=== PATIENT | male | born 1970 | race Caucasian/White ===

== ENCOUNTER 2019-07-31 06:07 | Inpatient (IN) | payer BC ==
[~2019-07-31] VITALS: Ht 165.1 cm; Wt 76.9 kg
[~2019-07-31 06:07] MED LIST: AMLO5TAB15 PO; BUSP15TA60 PO; DICY10CA12 PO; HYDR-4833 PO; LISI-646 PO; MONT10TA34 PO; PANT40TA2 PO; SULI200T4 PO; TRAM50TA2 PO
[2019-07-31] MEDS ORDERED: BUPIVACAINE HCL 50 ML ONE (06:55)
[2019-07-31] MEDS ORDERED: LIDOCAINE 1% HCL (LOCAL ANESTH.) INJ 20ML MDV ONE (06:55)
[2019-07-31] MEDS ORDERED: LIDOCAINE W/ EPINEPHRINE 1% 20ML VIAL ONE (06:55)
[2019-07-31] MEDS ORDERED: HEPARIN SODIUM (PORCINE) 5000 UNITS/ML 1ML VIAL ONE (06:59)
[2019-07-31] MEDS ORDERED: cefOXitin 2GM/100ML 100 ML IV ONE (07:00)
[2019-07-31] MEDS ORDERED: SUCCINYLCHOLINE CHLORIDE 20 MG/ML 10ML VIAL IV ONE (07:15)
[2019-07-31] MEDS ORDERED: ROCURONIUM 10MG/ML 10ML VIAL IV ONE (07:31)
[2019-07-31] MEDS ORDERED: fentaNYL CITRATE 100 MCG/2 ML VL ONE ×2 (07:31→08:41)
[2019-07-31] MEDS ORDERED: MIDAZOLAM HCL 1MG/1ML-2 ML VIAL ONE (07:32)
[2019-07-31] MEDS ORDERED: PROPOFOL 10 MG/ML 20 ML IV ONE (07:32)
[2019-07-31] MEDS ORDERED: GLUCAGON HYDROCHLORIDE (RDNA) 1 MG VIAL ONE (09:07)
[2019-07-31] MEDS ORDERED: ACETAMINOPHEN 325 MG TAB PO PRN (10:30)
[2019-07-31] MEDS ORDERED: PANTOPRAZOLE 40 MG/10 ML VIAL INJ IV ONE (10:30)
[2019-07-31] MEDS ORDERED: ePHEDrine SULFATE 50 MG/ML AMP IV PRN (10:45)
[2019-07-31] MEDS ORDERED: ENOXAPARIN SOD 40 MG/0.4 ML SYRINGE SC ONE (10:45)
[2019-07-31] MEDS ORDERED: amLODIPine BESYLATE 5 MG TAB PO ONE (10:45)
[2019-07-31] MEDS ORDERED: LISINOPRIL 20 MG TAB PO ONE (10:45)
[2019-07-31] MEDS ORDERED: HYDROmorphone HCL 2 MG/ML VL IV PRN (10:45)
[2019-07-31] MEDS ORDERED: GABAPENTIN 100 MG CAP PO ONE (10:45)
[2019-07-31] MEDS ORDERED: hydrALAZINE HCL 20 MG/ML VL IV PRN (10:45)
[2019-07-31] MEDS ORDERED: ONDANSETRON HCL 4 MG/2 ML VIAL IV PRN (10:45)
[2019-07-31] MEDS ORDERED: CELECOXIB 100 MG CAP PO ONE (10:45)
[2019-07-31] MEDS: HYDROmorphone HCL 2 MG/ML VL IV PRN ×4 (11:05→11:38)
[2019-07-31] MEDS: MORPHINE SULFATE 10 MG/ML INJ 1ML SDV IV PRN ×4 (12:47→20:52)
[2019-07-31] MEDS: busPIRone HCL 10 MG TAB PO SCH ×2 (12:48→22:20)
[2019-07-31] MEDS: D5W/SOD CHL 0.45%/KCL 20MEQ 1,000 ML IV SCH ×2 (12:48→23:50)
[2019-07-31 15:15] VITALS: BP 115/77
[2019-07-31 17:07] VITALS: BP 114/79
[2019-07-31 18:39] VITALS: BP 111/69
[2019-07-31 21:59] VITALS: BP 119/82
[2019-07-31] MEDS ORDERED: CELECOXIB 100 MG CAP PO SCH (22:00)
[2019-07-31] MEDS: CELECOXIB 100 MG CAP PO SCH (22:21)
[2019-07-31] MEDS: GABAPENTIN 100 MG CAP PO SCH (22:21)
[2019-08-01] MEDS: MORPHINE SULFATE 10 MG/ML INJ 1ML SDV IV PRN ×3 (01:00→21:45)
[2019-08-01 05:00] VITALS: BP 112/69
[2019-08-01] MEDS: MORPHINE SULF INJ 2 MG/ML SYRINGE 1ML IV PRN ×3 (05:28→18:58)
[2019-08-01] MEDS: D5W/SOD CHL 0.45%/KCL 20MEQ 1,000 ML IV SCH ×2 (05:29→20:50)
[2019-08-01 08:00] VITALS: BP 140/83
[2019-08-01] MEDS: busPIRone HCL 10 MG TAB PO SCH ×2 (09:42→21:44)
[2019-08-01] MEDS: CELECOXIB 100 MG CAP PO SCH ×2 (09:42→21:44)
[2019-08-01] MEDS: GABAPENTIN 100 MG CAP PO SCH ×2 (09:42→21:44)
[2019-08-01] MEDS: MONTELUKAST SODIUM 10 MG TAB PO SCH (09:43)
[2019-08-01] MEDS: amLODIPine BESYLATE 5 MG TAB PO SCH (09:43)
[2019-08-01] MEDS: LISINOPRIL 20 MG TAB PO SCH (09:44)
[2019-08-01] MEDS: ENOXAPARIN SOD 40 MG/0.4 ML SYRINGE SC SCH (09:44)
[2019-08-01 11:46] LABS: Basophils # (auto) 0 10 ^3/uL (0-0.2); Basophils % (auto) 0.3 % (0.0-2.0); Eosinophils # (auto) 0 10 ^3/uL (0-0.8); Eosinophils % (auto) 0.2 % (0.0-7.0); Hemoglobin 13.7 g/dL (13.5-17.5); Lymphocytes # (auto) 1.2 10 ^3/uL (0.4-5.4); Lymphocytes % (auto) 11.6 % (10.0-50.0); Mean Corpuscular Hemoglobin 30.1 pg (28.0-32.0); Mean Corpuscular Hgb Conc. 33.4 g/dL (32.0-36.0); Mean Corpuscular Volume 90.1 fL (80.0-100.0); Monocytes # (auto) 0.8 10 ^3/uL (0-1.3); Monocytes % (auto) 7.6 % (0.0-12.0); Neutrophils # (auto) 8.5 10 ^3/uL (1.6-8.6); Neutrophils % (auto) 80.3 % (37.0-80.0); Nucleated Red Blood Cells % 0.2 %; Platelet Count (auto) 258 10^3/uL (140-450); Red Blood Cells 4.55 10^6/uL (4.5-5.90); Red Cell Distribution Width 14.1 % (11.8-14.3); White Blood Cell 10.6 10^3/uL (4.4-10.8)
[2019-08-01 12:00] VITALS: BP 128/83
[2019-08-01 12:05] LABS: BUN/Creatinine Ratio 7.6; Calcium 8.7 mg/dL (8.5-10.1); Magnesium 2.3 mg/dL (1.6-2.6); Potassium 4.2 mmol/L (3.5-5.1)
[2019-08-01 17:00] VITALS: BP 123/82
[2019-08-01 20:00] VITALS: BP 137/80
[2019-08-01 21:57] VITALS: BP 137/80
[2019-08-02] MEDS: MORPHINE SULF INJ 2 MG/ML SYRINGE 1ML IV PRN ×3 (04:29→23:04)
[2019-08-02 05:00] VITALS: BP 140/85
[2019-08-02 08:00] VITALS: BP 133/95
[2019-08-02 08:58] VITALS: BP 133/95
[2019-08-02] MEDS: busPIRone HCL 10 MG TAB PO SCH ×2 (10:18→22:03)
[2019-08-02] MEDS: amLODIPine BESYLATE 5 MG TAB PO SCH (10:19)
[2019-08-02] MEDS: GABAPENTIN 100 MG CAP PO SCH ×2 (10:19→22:07)
[2019-08-02] MEDS: CELECOXIB 100 MG CAP PO SCH ×2 (10:19→22:05)
[2019-08-02] MEDS: MONTELUKAST SODIUM 10 MG TAB PO SCH (10:19)
[2019-08-02] MEDS: LISINOPRIL 20 MG TAB PO SCH (10:20)
[2019-08-02] MEDS: ENOXAPARIN SOD 40 MG/0.4 ML SYRINGE SC SCH (10:20)
[2019-08-02] MEDS: MORPHINE SULFATE 10 MG/ML INJ 1ML SDV IV PRN (10:20)
[2019-08-02 12:36] VITALS: BP 135/86
[2019-08-02] MEDS: D5W/SOD CHL 0.45%/KCL 20MEQ 1,000 ML IV SCH ×2 (15:41→22:08)
[2019-08-02 17:23] VITALS: BP 144/98
[2019-08-02 22:00] VITALS: BP 139/97
[2019-08-03 05:00] VITALS: BP 113/74
[2019-08-03 08:59] VITALS: BP 145/86
[2019-08-03] MEDS: amLODIPine BESYLATE 5 MG TAB PO SCH (10:04)
[2019-08-03] MEDS: LISINOPRIL 20 MG TAB PO SCH (10:05)
[2019-08-03] MEDS: GABAPENTIN 100 MG CAP PO SCH ×2 (10:05→23:09)
[2019-08-03] MEDS: busPIRone HCL 10 MG TAB PO SCH ×2 (10:06→23:10)
[2019-08-03] MEDS: MONTELUKAST SODIUM 10 MG TAB PO SCH (10:06)
[2019-08-03] MEDS: CELECOXIB 100 MG CAP PO SCH ×2 (10:06→23:10)
[2019-08-03] MEDS: ENOXAPARIN SOD 40 MG/0.4 ML SYRINGE SC SCH (10:10)
[2019-08-03] MEDS: MORPHINE SULF INJ 2 MG/ML SYRINGE 1ML IV PRN ×3 (11:01→23:10)
[2019-08-03] MEDS: ONDANSETRON HCL 4 MG/2 ML VIAL IV PRN ×3 (11:01→23:10)
[2019-08-03 13:00] VITALS: BP 119/78
[2019-08-03 17:00] VITALS: BP 136/86
[2019-08-03] MEDS: D5W/SOD CHL 0.45%/KCL 20MEQ 1,000 ML IV SCH (18:30)
[2019-08-03 22:00] VITALS: BP 145/89
[2019-08-04 05:00] VITALS: BP 132/82
[2019-08-04] MEDS: MORPHINE SULF INJ 2 MG/ML SYRINGE 1ML IV PRN (05:06)
[2019-08-04] MEDS: ONDANSETRON HCL 4 MG/2 ML VIAL IV PRN (05:06)
[2019-08-04] MEDS: D5W/SOD CHL 0.45%/KCL 20MEQ 1,000 ML IV SCH ×2 (07:50→16:19)
[2019-08-04 09:00] VITALS: BP 131/80
[2019-08-04] MEDS: amLODIPine BESYLATE 5 MG TAB PO SCH (09:59)
[2019-08-04] MEDS: LISINOPRIL 20 MG TAB PO SCH (09:59)
[2019-08-04] MEDS: ENOXAPARIN SOD 40 MG/0.4 ML SYRINGE SC SCH (10:00)
[2019-08-04] MEDS: GABAPENTIN 100 MG CAP PO SCH ×2 (10:00→22:14)
[2019-08-04] MEDS: busPIRone HCL 10 MG TAB PO SCH ×2 (10:00→22:16)
[2019-08-04] MEDS: MONTELUKAST SODIUM 10 MG TAB PO SCH (10:00)
[2019-08-04] MEDS: CELECOXIB 100 MG CAP PO SCH ×2 (10:00→22:16)
[2019-08-04 14:51] VITALS: BP 124/76
[2019-08-04 17:00] VITALS: BP 122/82
[2019-08-04] MEDS ORDERED: TEMAZEPAM 15 MG CAP PO ONE (20:00)
[2019-08-04 22:00] VITALS: BP 133/78
[2019-08-05 05:08] VITALS: BP 127/74
[2019-08-05 06:34] LABS: BUN/Creatinine Ratio 18.3; Calcium 8.3 mg/dL (8.5-10.1); Magnesium 2.1 mg/dL (1.6-2.6)
[2019-08-05 08:51] VITALS: BP 119/95
[2019-08-05] MEDS: MONTELUKAST SODIUM 10 MG TAB PO SCH (08:59)
[2019-08-05] MEDS: CELECOXIB 100 MG CAP PO SCH (09:00)
[2019-08-05] MEDS: amLODIPine BESYLATE 5 MG TAB PO SCH (09:01)
[2019-08-05] MEDS: GABAPENTIN 100 MG CAP PO SCH (09:01)
[2019-08-05] MEDS: LISINOPRIL 20 MG TAB PO SCH (09:02)
[2019-08-05] MEDS: busPIRone HCL 10 MG TAB PO SCH (09:03)
[2019-08-05] MEDS: ENOXAPARIN SOD 40 MG/0.4 ML SYRINGE SC SCH (09:04)
[2019-08-05] MEDS: D5W/SOD CHL 0.45%/KCL 20MEQ 1,000 ML IV SCH (10:30)
[2019-08-05 13:00] VITALS: BP 134/90
[2019-08-05 17:01] VITALS: BP 138/85
== END 2019-08-05 20:20 | disposition home or self-care (01) | DRG 330 ==
LOC: OVERFLOW 06:07 → EDSTATUS 07:00 → EDBD 07:00 → WEST WING 12:05
PROVIDERS: ATTEND Internal Medicine
PROC: 0DJD0ZZ Inspection of Lower Intestinal Tract, Open Approach (ICD-10-PCS; 2019-07-31)
PROC: 0DNW0ZZ Release Peritoneum, Open Approach (ICD-10-PCS; 2019-07-31)
PROC: 0DTN0ZZ Resection of Sigmoid Colon, Open Approach (ICD-10-PCS; principal; 2019-07-31 07:36)
DX: K57.32 Diverticulitis of large intestine without perforation or abscess without bleeding (principal); K56.7 Ileus, unspecified; I10 Essential (primary) hypertension; K21.9 Gastro-esophageal reflux disease without esophagitis; K66.0 Peritoneal adhesions (postprocedural) (postinfection); L40.50 Arthropathic psoriasis, unspecified; Z20.828 Contact with and (suspected) exposure to other viral communicable diseases; Z53.31 Laparoscopic surgical procedure converted to open procedure; Z79.899 Other long term (current) drug therapy; Z88.2 Allergy status to sulfonamides
CPT/HCPCS: 36415; 71045; 74022; 80048; 83735; 85025; 86850; 86900; 86901; 97116; 97163; 97530; C9113; G0378; J0330; J0694; J2001; J2250; J2405; J2704; J3490

== ENCOUNTER 2019-08-19 10:48 | Emergency (ER) | payer BC ==
[~2019-08-19] VITALS: Ht 165.1 cm; Wt 74.8 kg
[2019-08-19] MEDS ORDERED: SODIUM CHLORIDE 0.9% 1,000 ML IV ONE (16:29)
[2019-08-19 17:31] LABS: Basophils # (auto) 0.1 10 ^3/uL (0-0.2); Lymphocytes # (auto) 1.5 10 ^3/uL (0.4-5.4); Mean Corpuscular Hgb Conc. 32.5 g/dL (32.0-36.0); Monocytes # (auto) 0.8 10 ^3/uL (0-1.3); Nucleated Red Blood Cells % 0.1 %; Red Cell Distribution Width 14.1 % (11.8-14.3)
[2019-08-19 17:32] LABS: Basophils % (auto) 1.3 % (0.0-2.0); Eosinophils # (auto) 0.2 10 ^3/uL (0-0.8); Eosinophils % (auto) 2.4 % (0.0-7.0); Hematocrit 40.5 % (41.0-53.0); Hemoglobin 13.2 g/dL (13.5-17.5); Lymphocytes % (auto) 21.1 % (10.0-50.0); Mean Corpuscular Hemoglobin 29.2 pg (28.0-32.0); Mean Corpuscular Volume 89.9 fL (80.0-100.0); Monocytes % (auto) 10.3 % (0.0-12.0); Neutrophils # (auto) 4.8 10 ^3/uL (1.6-8.6); Neutrophils % (auto) 64.9 % (37.0-80.0); Platelet Count (auto) 489 10^3/uL (140-450); Red Blood Cells 4.51 10^6/uL (4.5-5.90); White Blood Cell 7.3 10^3/uL (4.4-10.8)
[2019-08-19 17:43] LABS: INR 1.03 (0.9-1.15); Partial Thromboplastin Time 27.6 sec (23.64-32.05)
[2019-08-19 17:46] LABS: Albumin 4.1 g/dL (3.4-5.0); Calcium 9.6 mg/dL (8.5-10.1); Magnesium 2.2 mg/dL (1.6-2.6); Potassium 3.9 mmol/L (3.5-5.1)
[2019-08-19 17:50] LABS: Bilirubin, Total 0.3 mg/dL (0.2-1.0); Total Protein 8.3 g/dL (6.4-8.2)
[2019-08-19] MEDS ORDERED: cefTRIAXone 1GM/50ML D5W 50 ML IV ONE (18:00)
[2019-08-19 18:15] LABS: Urine Bacteria NONE SEEN /hpf (None Seen); Urine Blood Negative /uL (Negative); Urine Mucus FEW (None Seen); Urine Specific Gravity 1.022 (1.001-1.035); Urine WBC 2 /hpf (0 - 3)
[2019-08-19] MEDS ORDERED: LIDOCAINE 1% HCL (LOCAL ANESTH.) INJ 20ML MDV ONE (18:37)
[2019-08-19] MEDS ORDERED: NEOMYCIN-BACITRACIN-POLYM UNITDOSE PKG TOP OINT TOP ONE (19:15)
[2019-08-19 19:19] VITALS: BP 126/84
== END 2019-08-19 19:20 | disposition home or self-care (01) ==
LOC: ER 10:48
DX: L03.311 Cellulitis of abdominal wall (principal); R11.2 Nausea with vomiting, unspecified; I10 Essential (primary) hypertension; J45.909 Unspecified asthma, uncomplicated; Z98.890 Other specified postprocedural states; Z88.2 Allergy status to sulfonamides; Z79.899 Other long term (current) drug therapy
CPT/HCPCS: 10060; 36415; 74176; 80053; 81001; 83690; 83735; 85025; 85610; 85730; 87040; 96361; 96365; 99284; J0696; J2001; J7030